=== PATIENT | male | born 1975 | race Caucasian/White ===

== ENCOUNTER 2018-06-17 18:32 | Emergency (ER) | payer SELFPAY ==
--- NOTE | 2018-06-17 19:36 | ED Physician Chart ---
ED Chief Complaint/HPI - Patient Information Date Seen:: 06/17/18 Time Seen:: 19:31 Chief Complaint:: ETOH History of Present Illness:: 42 YR OLD MALE WITH ETOH ABUSE ED Review of Systems - Review of Systems General/Constitutional: No fever, No chills Skin: No skin lesions Head: No headache Eyes: No loss of vision ENT: No earache Neck: No neck pain Cardio Vascular: No chest pain Pulmonary: No SOB, No cough, No sputum, No wheezing GI: No nausea, No vomiting, No diarrhea, No pain, No melena, No hematochezia, No constipation, No hematemesis G/U: No dysuria, No frequency, No hematuria Musculoskeletal: No bone or joint pain, No back pain, No muscle pain Endocrine: No polyuria, No polydipsia Psychiatric: No prior psych history, No depression, No anxiety, No suicidal ideation Hematopoietic: No bruising, No lymphadenopathy Allergic/Immuno: No urticaria, No angioedema Neurological: No syncope, No focal symptoms, No weakness, No paresthesia, No headache, No seizure, No dizziness, No confusion, No vertigo ED Past Medical History - Past Medical History Past Medical History: Other (ETOH) ED Physical Exam - Physical Examination General/Constitutional: Awake, Well-developed, well-nourished, Alert, No distress, GCS 15, Non-toxic appearing, Ambulatory Head: Atraumatic Eyes: Lids, conjuctiva normal, PERRL, EOMI Skin: Nl inspection, No rash, No skin lesions, No ecchymosis, Well hydrated, No lymphadenopathy ENMT: External ears, nose nl, Nasal exam nl, Lips, teeth, gums nl Neck: Nontender, Full ROM w/o pain, No JVD, No nuchal rigidity, No bruit, No mass, No stridor Respiratory: Nl effort/Exclusion, Clear to Auscultation, No Wheeze/Rhonchi/Rales Cardio Vascular: RRR, No murmur, gallop, rubs, NL S1 S2 GI: No tenderness/rebounding/guarding, No organomegaly, No hernia, Normal BS's, Nondistended, No mass/bruits, No McBurney tenderness : No CVA tenderness Extremities: No tenderness or effusion, Full ROM, normal strength in all extremities, No edema, Normal digits & nails Neuro/Psych: Alert/oriented, DTR's symmetric, Normal sensory exam, Normal motor strength, Judgement/insight normal, Mood normal, Normal gait, No focal deficits Misc: Normal back, No paraspinal tenderness ED Assessment - Assessment General Assessment: GENERALIZED WEAKNESS ED Septic Shock - . Is Septic Shock (SBP<90, OR Lactate>4 mmol\L) present?: No ED Reassessment (Disposition) - Reassessment Reassessment Condition:: Unchanged - Diagnosis Diagnosis:: GENERALIZED WEAKNESS - Patient Disposition Discharge/Transfer:: Home Condition at Disposition:: Stable
[2018-06-17 20:17] LABS: BASOPHILE ABSOLUTE 0.1 Th/cumm (0-0.2)
[2018-06-17 20:23] LABS: % BASOPHILS 0.7 % (0.0-2.0); % EOSINOPHILS 0.4 % (0.0-5.0); % LYMPHOCYTES 12.3 % (20.0-50.0); % MONOCYTES 5.1 % (2.0-10.0); % NEUTROPHILS 81.5 % (40.0-80.0); HEMATOCRIT 35.3 % (41.0-60); HEMOGLOBIN 11.1 gm/dL (12-16); MEAN CORPUSCULAR HEMOGLOBIN 19.9 pg (26.0-30.0); MEAN CORPUSCULAR HGB CONC 31.6 pg (28.0-36.0); MEAN PLATELET VOLUME 8.7 fl; MONOCYTE ABSOLUTE 0.4 Th/cmm (0.3-1.0); NEUTROPHILE ABSOLUTE 6.3 Th/cmm (1.8-8.0); PLATELET COUNT 354 Th/cmm (150-400); RED BLOOD COUNT 5.59 Mil/cmm (4.30-5.70); RED CELL DISTRIBUTION WIDTH 19.5 % (11.5-20.0); WHITE BLOOD COUNT 7.8 Th/cmm (4.8-10.8)
[2018-06-17 20:28] LABS: MEAN CELL VOLUME 63.2 fl (80-99)
[2018-06-17 20:33] LABS: ALB/GLOB RATIO 1.5 (1.0-1.8); ALBUMIN 4.8 gm/dL (4.2-5.5); ALKALINE PHOSPHATASE 58 U/L (34-104); BUN - UREA NITROGEN 12 mg/dL (7-25); CALCIUM SERUM 10.1 mg/dL (8.6-10.3); CARBON DIOXIDE 22.6 mEq/L (21.0-31.0); CHLORIDE 98 mEq/L (98-107); CREATININE - SERUM 1.2 mg/dL (0.7-1.3); GFR AFRICAN-AMERICAN > 60.0 ml/min (>90); GFR NON AFRICAN-AMERICAN > 60.0 ml/min; GLUCOSE 80 mg/dL (70-105); POTASSIUM SERUM 3.6 mEq/L (3.5-5.1); SGOT 20 U/L (13-39); SGPT/ALT 15 U/L (7-52); SODIUM SERUM 138 mEq/L (136-145)
== END 2018-06-17 21:30 | disposition home or self-care (01) ==
LOC: ER 18:32
DX: R53.1 Weakness (principal); F10.10 Alcohol abuse, uncomplicated
CPT/HCPCS: 36415-UA; 80053-TC; 80320-TC; 82550-TC; 84484-TC; 85025-TC; 93005; Z7502